=== PATIENT | female | born 1955 | race Caucasian/White ===

== ENCOUNTER 2022-01-12 13:33 | Emergency (ER) | payer BC ==
[2022-01-12 13:59] VITALS: BP 107/67; RESP 17; TEMP 98.7; BMI 25.0
[2022-01-12] MEDS ORDERED: SODIUM CHLORIDE 0.9% 500 ML INFUS.BAG IV ONE (16:50)
[2022-01-12] MEDS ORDERED: ACETAMINOPHEN 1000 MG/100 ML BAG IVPB ONE (17:22)
[2022-01-12] MEDS ORDERED: ACETAMINOPHEN INJECTION 100 ML IVPB ONE (18:05)
[2022-01-12 18:49] VITALS: PULSE 86
[2022-01-12 19:22] LABS: HEMATOCRIT 44.4 % (32.4-45.2); HEMOGLOBIN 14.6 GM/dL (10.7-15.3); MCH 31.1 pg (25.7-33.7); MCHC 32.8 g/dl (32.0-36.0); MEAN CELL VOLUME 94.8 fl (80-96); PLATELET COUNT 305 10^3/uL (134-434); RBC 4.68 M/mm3 (3.60-5.2); RDW 13.4 % (11.6-15.6); WHITE BLOOD COUNT 7.5 K/mm3 (4.0-10.0)
[2022-01-12 19:47] LABS: BLOOD UREA NITROGEN 14.1 mg/dL (7-18); CALCIUM 9.5 mg/dL (8.5-10.1)
[2022-01-12 19:48] LABS: ALBUMIN 4.2 g/dl (3.4-5.0)
[2022-01-12 19:51] LABS: CREATININE 1.1 mg/dL (0.55-1.3)
[2022-01-12 19:52] LABS: BILIRUBIN,TOTAL 0.5 mg/dL (0.2-1); TOT PROT 8.5 g/dl (6.4-8.2)
== END 2022-01-12 20:32 | disposition home or self-care (01) ==
LOC: JER 13:33
PROC: 3E033GC Introduction of Other Therapeutic Substance into Peripheral Vein, Percutaneous Approach (ICD-10-PCS; principal; 2022-01-12)
DX: U07.1 COVID-19 (principal); R55 Syncope and collapse; J11.1 Influenza due to unidentified influenza virus with other respiratory manifestations
CPT/HCPCS: 0241U-QW; 36415; 70450-TC; 70486-TC; 71046-TC-FY; 72110-TC-FY; 72125-TC; 80053; 84484; 85027; 93005; 93010; 99285-25